=== PATIENT | male | born 1965 | race Caucasian/White ===

== ENCOUNTER → 2018-09-10 06:27 | Outpatient (CLI) | payer BC, SELFPAY ==
--- NOTE | 2018-09-10 06:30 | CA_ITS ---
PROCEDURE: 2-D M-mode and color Doppler study INDICATIONS FOR THE TEST: Chest pain + COPD Heart Murmur Tobacco Smoking+ Palpitations Fatigue Syncope Edema Hypertension+Diabetes Mellitus Rheumatic Fever SOB MCALLISTER Obesity Hyperlipidemia+ Family History HD Additional History TIA BUBBLE STUDY PERFORMED PATIENT INFORMATION HEIGHT: 75 WEIGHT:213 GENDER: Male B/P:128/83 2-D/M-MODE INTERPRETATION: 2-D MEASUREMENTS OBSERVED VALUES IN CMS Right Ventricular Dimension (RVDd) 2.1 Interventricular Septum (Thickness)(IVsd) 1.4 Left Ventricular Internal Dimensions(LVIDd) 4.4 Left Ventricular Posterior Wall (Thickness)(LVPWd) 1.1 Aortic Root 3.1 Aortic Cusp Separation 2.1 Left Atrial Dimensions (LAD) 2.9 2D 1. left atrium is normal size, left ventricle is normal size, mild concentric left ventricular hypertrophy, visually estimated ejection fraction 55% with no regional wall motion abnormality. 2. The right atrium and right ventricle are mildly enlarged with normal contractility. 3. The aortic valve is minimally thickened and fibrosed. 4. The mitral and tricuspid valve leaflets are grossly normal. 5. The pulmonic valve is poorly visualized. 6. No significant pericardial effusion noted. DOPPLER INTERROGATION: Doppler interrogation of the aortic, mitral and tricuspid valvular presence of mild mitral and tricuspid regurgitation, tricuspid regurgitation jet velocity is inadequate for calculation of the right ventricular systolic pressure, diastolic parameters are inconclusive. CONCLUSION: 1. Normal left ventricular size, mild concentric left ventricular hypertrophy, visually estimated ejection fraction 55% with no regional wall motion abnormality, diastolic parameters are inconclusive. 2. Mildly enlarged right ventricle with normal contractility. 3. Mild mitral and tricuspid regurgitation 4. No significant pericardial effusion noted.
--- NOTE | 2018-09-10 06:35 | NM_ITS ---
SPECT MYOCARDIAL PERFUSION SCAN, REST AND STRESS: EXERCISE STRESS: [facility] REVIEW QGS EF AND WALL MOTION EVALUATION: QPS - PERFUSION EVALUATION: HISTORY: Chest pain, Tobacco use PROCEDURE: Rest imaging performed after administration of9.99 millicuries Tc MIBI. Dose administered at6:40 a.m., with imaging thereafter. Stress imaging was then performed [id number] minutes of exercise stress. The patient achieved a heart [id number] with projected heart rate of144 . Resting BP143/96 with stress 165/80. At maximum exercise stress,30.5 millicuries Tc MIBI administered at8:20 a.m. with minutes thereafter. FINDINGS: Perfusion Evaluation: The single slice spect images as well as the [facility] bull's-eye data summary were reviewed. Wall Motion and Ejection Fraction Evaluation: Gated SPECT review and analysis used to evaluate these features. There is a 54 % left ventricular ejection fraction. There seems to be good wall motion Uniform myocardial activity for stress and rest IMPRESSION: No scintigraphic evidence of exercise-induced myocardial ischemia normal ejection fraction normal wall motion
--- NOTE | 2018-09-10 07:17 | HMH.ITSHM ---
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 []LIPITOR
== END ==
PROVIDERS: PCP Internal Medicine Adolescent Medicine; Visit Provider Internal Medicine
DX: R07.9 Chest pain, unspecified (principal); Z72.0 Tobacco use
CPT/HCPCS: 78452; 93017; 93306; A9502

== ENCOUNTER → 2020-08-03 09:39 | Outpatient (POV) | payer BC, SELFPAY | PROVIDERS: Visit Provider Dermatology | DX: Z00.00 Encounter for general adult medical examination without abnormal findings (principal) ==